=== PATIENT | female | born 1950 ===

== ENCOUNTER 2024-10-29 10:36 | Outpatient (CLI) | payer OTHER | END 2024-10-29 10:40 | disposition home or self-care (01) | LOC: SONOGRAMA 10:36 | PROVIDERS: ATTEND Pathology Anatomic Pathology & Clinical Pathology | DX: C03.1 Malignant neoplasm of lower gum (principal); C77.0 Secondary and unspecified malignant neoplasm of lymph nodes of head, face and neck ==